=== PATIENT | male | born 1960 | race Caucasian/White ===

== ENCOUNTER 2018-01-20 09:07 | Emergency (ER) | payer BC ==
[~2018-01-20] VITALS: Ht 170.2 cm; Wt 74.0 kg
[2018-01-20 09:12] VITALS: BP 161/91; PULSE 61; RESP 16; TEMP 98.1; O2SAT 98
[2018-01-20] MEDS ORDERED: LOSA25TA PO (09:34)
[2018-01-20] MEDS ORDERED: GLUC15009 PO (09:35)
--- NOTE | 2018-01-20 10:13 | PD ---
HPI Chief Complaint: Laceration/Skin Injury Time Seen by Provider: 09:33 Travel History International Travel<30 days: No Contact w/Intl Traveler<30days: No Traveled to known affect area: No History of Present Illness HPI This is a 57-year-old male here with a injury to the left thumb caused by a table saw. He reports prior to arrival while cutting wood with a table saw he accidentally cut the thumb. He has pain at the site of the laceration which is constant and throbbing. Severity moderate. He is able to flex and extend the thumb. Denies paresthesia or weakness of the digit. Tetanus immunization is up -to-date. PFSH Past Medical History Hypertension: Yes Tetanus Vaccination: < 5 Years Influenza Vaccination: No Past Surgical History Appendectomy: Yes Social History Alcohol Use: Yes (RARELY) Tobacco Use: No Substance Use: No Allergies-Medications (Allergen,Severity, Reaction): Coded Allergies: No Known Allergies (Unverified , 01/20/18) Reported Meds & Prescriptions Reported Meds & Active Scripts Active Reported Glucosamine 1,500 Mg Tab Unknown Dose PO DAILY Losartan (Losartan Potassium) 25 Mg Tab Unknown Dose PO DAILY Review of Systems Except as stated in HPI: all other systems reviewed are Neg Physical Exam Narrative GENERAL: Alert and well-appearing 57-year-old male SKIN: Warm and dry. HEAD: Normocephalic. EYES: No injection or drainage. NECK: Supple CARDIOVASCULAR: Regular rate and rhythm RESPIRATORY: Breath sounds equal bilaterally. No accessory muscle use. GASTROINTESTINAL:nondistended. MUSCULOSKELETAL: No cyanosis, or edema. Left hand: Avulsion type skin injury to the medial distal aspect of the thumb involving the nail. No bone is visualized or palpated. Patient is able to flex and extend the DIP joint. Brisk cap refill to the remaining portion of the nail. Data Data Last Documented VS Vital Signs Date Time Temp Pulse Resp B/P (MAP) Pulse Ox O2 Delivery O2 Flow Rate FiO2 01/20/18 09:12 98.1 61 16 161/91 (114) 98 Orders Orders Finger (Pan1ojd) (01/20/18 ) Mupirocin 2% Oint (Bactroban 2% Oint) (01/20/18 12:00) Cephalexin (Keflex) (01/20/18 12:00) Acetamin-Hydrocod 325-5 Mg ([place] 5-325 (5/20/18 12:15) MDM Medical Decision Making Medical Screen Exam Complete: Yes Emergency Medical Condition: Yes Differential Diagnosis Fingertip amputation, open fracture, nailbed injury Narrative Course 57-year-old male with avulsion type skin injury/fingertip amputation. The case was discussed with on-call hand surgeon Dr. MIJARES he viewed pictures of the wound and x-rays. He recommends wound care with Betadine, Bactroban, Xeroform and gauze dressing. Start patient on Keflex and have him follow-up in his office this week. Diagnosis Primary Impression: Finger laceration Qualified Codes: S61.012A - Laceration without foreign body of left thumb without damage to nail, initial encounter Referrals: Shahriar Mijares MD Additional Instructions: Cleanse the area daily and applying new dressing as directed. Antibiotics as directed. Call to schedule a follow-up appointment with Dr. Mijares. Return if you develop new or worsening symptoms Scripts Tramadol (Ultram) 50 Mg Tab 50 MG PO Q6H Y for PAIN, #12 TAB 0 Refills Prov: Grace Wall 01/20/18 Mupirocin Nasal Oint (Bactroban Nasal Oint) 2% Oint 1 APPLIC TOPICAL DAILY for Mgmt Bacterial Infection, #1 TUBE 0 Refills For 5 days. Prov: Grace Wall 01/20/18 Cephalexin (Keflex) 500 Mg Capsule 500 MG PO QID for Infection for 10 Days, CAP 0 Refills Prov: Grace Wall 01/20/18 Disposition: 01 DISCHARGE HOME Condition: Stable Grace Wall January 20, 2018 10:12
--- NOTE | 2018-01-20 10:57 | RADRPT ---
EXAM DATE/TIME: 01/20/2018 10:07 [facility] COMPARISON: No previous studies available for comparison. INDICATIONS : Laceration tip of left thumb from table saw MEDICAL HISTORY : None. SURGICAL HISTORY : None. ENCOUNTER: Initial ACUITY: 1 day PAIN SCORE: 8/10 LOCATION: Left thumb FINDINGS: There is soft tissue abnormality about the distal 1st digit characteristic of history of laceration. On the lateral view only, there is questionable discontinuity of the distal tuft of the 1st digit di stal phalanx; the distal phalanx appears intact on the other 2 views. The proximal phalanx and 1st m etacarpal bone are intact. No radiopaque foreign bodies. CONCLUSION: Questionable disruption of the tip of the distal tuft seen on only one of the views. Cooper Neff MD on January 20, 2018 at 10:54 Board Certified Radiologist. This report was verified electronically.
[2018-01-20] MEDS ORDERED: MUPIROCIN 2% OINT 22 GM TUBE TOPICAL ONE (12:00)
[2018-01-20] MEDS ORDERED: CEPHALEXIN MONOHYDRATE 500 MG CAP PO ONE (12:00)
[2018-01-20] MEDS ORDERED: ACETAMINOPHEN/HYDROcodone 325 MG/5 MG TAB PO ONE (12:15)
[2018-01-20] MEDS ORDERED: CEPH-460 PO (12:27)
[2018-01-20] MEDS ORDERED: BACTOIN TOPICAL (12:30)
[2018-01-20] MEDS ORDERED: TRAM50 PO (12:38)
== END 2018-01-20 13:21 | disposition home or self-care (01) ==
LOC: PHED 09:07
DX: S61.012A Laceration without foreign body of left thumb without damage to nail, initial encounter (principal); I10 Essential (primary) hypertension; W31.2XXA Contact with powered woodworking and forming machines, initial encounter
CPT/HCPCS: 73140; 99283